=== PATIENT | female | born 1990 | race Two or more races ===

== ENCOUNTER 2019-11-27 12:38 | Emergency (ER) | payer OTHER ==
[2019-11-27 12:51] VITALS: BP 136/74; TEMP 98.5; BMI 35.5
--- NOTE | 2019-11-27 13:00 | PDOC ---
History of Present Illness - General Chief Complaint: Vaginal Bleeding Stated Complaint: 11 WKS PRGT VAG BLEED Time Seen by Provider: 11/27/19 12:53 History Source: Patient - History of Present Illness Timing/Duration: reports: intermittent Past History - Medical History Allergies/Adverse Reactions: Allergies Allergy/AdvReac Type Severity Reaction Status Date / Time aspirin Allergy Verified 11/27/19 12:48 Penicillins Allergy Verified 11/27/19 12:48 Home Medications: Ambulatory Orders Nitrofurantoin Monohyd/M-Cryst [Macrobid -] 100 mg PO BID #14 capsule 11/27/19 Asthma: Yes COPD: No - Reproductive History Is Patient Now?: No - Psycho-Social/Smoking History Smoking History: Never smoked Have you smoked in the past 12 months: No Information on smoking cessation initiated: No - Substance Abuse Hx (Audit-C & DAST Scrn) How often the patient has a drink containing alcohol: Never Score: In Men: 4 or > Positive; In Women: 3 or > Positive: 0 Screen Result (Pos requires Nsg. Audit-10AR): Negative In the last yr the pt used illegal drug/Rx for NonMed reason: No Score: Yes response is considered Positive: 0 Screen Result (Positive result requires Nsg. DAST-10): Negative Review of Systems - Review of Systems Constitutional: No: Chills, Fever ABD/GI: No: Nausea, Vomiting, Abdominal cramping : No: Dysuria *Physical Exam - Vital Signs Last Vital Signs Temp Pulse Resp BP Pulse Ox 98.5 F 101 H 20 136/74 98 11/27/19 12:48 11/27/19 12:48 11/27/19 12:48 11/27/19 12:48 11/27/19 12:48 - Physical Exam General Appearance: Yes: Appropriately Dressed. No: Apparent Distress HEENT: positive: Normal Voice Neck: positive: Supple Respiratory/Chest: negative: Respiratory Distress Gastrointestinal/Abdominal: positive: Soft. negative: Tender Musculoskeletal: negative: CVA Tenderness Integumentary: positive: Dry, Warm Neurologic: positive: Fully Oriented, Alert, Normal Mood/Affect Medical Decision Making - Medical Decision Making 11/27/19 12:56 29 yo F, , ~11 weeks by dates, no care/US as of yet, has 1st appt next week, here vaginal bleeding on and off x 2-3 weeks. Had clots in the beginning but not now. No abd pain, dysuria, n/v/f/c. Went to UC today and sent to the ER see exam 1st trimester bleed Stable w/ unremarkable exam -T&S -Beta -UA/Ucx -US 11/27/19 14:52 +UTI, ucx sent. US w/ ~10 w IUP with FHR. O+. Stable for dc w/ abx. To f/u with OB as d/w pt Discharge - Discharge Information Problems reviewed: Yes Clinical Impression/Diagnosis: Threatened , Bacteriuria Condition: Stable Disposition: HOME - Additional Discharge Information Prescriptions: Nitrofurantoin Monohyd/M-Cryst [Macrobid -] 100 mg PO BID #14 capsule - Follow up/Referral - Patient Discharge Instructions Patient Printed Discharge Instructions: DI for Threatened Additional Instructions: Your ultrasound shows a 10-week 4-day intrauterine with heart activity documented [place] type [place] O[place] [id number] Your urine showed a urine infection and antibiotics was sent to your pharmacy Please follow-up with your OB - Post Discharge Activity
[2019-11-27 13:39] LABS: EPI CELLS >36 /uL (0-25.1); HYALINE CASTS 5 /uL (0-3.1); PH,URINE 7.5 (5.0-8.0); URINE APPEARANCE CLOUDY; URINE BACTERIA 4689 /uL (0-1359); URINE BILIRUBIN NEGATIVE (NEGATIVE); URINE COLOR YELLOW; URINE GLUCOSE (UA) NEGATIVE (NEGATIVE); URINE KETONE TRACE (NEGATIVE); URINE LEUK ESTERASE 3+ (NEGATIVE); URINE NITRITE NEGATIVE (NEGATIVE); URINE PROTEIN NEGATIVE (NEGATIVE); URINE RBC 17 /uL (0-23.9); URINE UROBILINOGEN 0.2 mg/dL (0.2-1.0); URINE WBC 221 /uL (0-25.8)
[2019-11-27 15:19] VITALS: PULSE 84
--- OUTSIDE RECORDS SUMMARY | 2019-11-27 18:05 | XMS ---
:[address] [facility] Care Team Providers Name Role Phone KaitlinaleenaramonenocMaye Unavailable Unavailable Aszalos, Gayathri Unavailable Unavailable Aszalos, Gayathri Unavailable Unavailable Aszalos, Gayathri Unavailable Unavailable Aszalos, Gayathri Unavailable Unavailable Aszalos, Gayathri Unavailable Unavailable Aszalos, Gayathri Unavailable Unavailable Aszalos, Gayathri Unavailable Unavailable Aszalos, Gayathri Unavailable Unavailable Ekechukwu Unavailable [phone] Ekechukwu Unavailable [phone] Brannon Unavailable Unavailable Brannon Unavailable Unavailable Brannon Unavailable Unavailable Brannon Unavailable Unavailable Brannon Unavailable Unavailable Brannon Unavailable Unavailable Brannon Unavailable Unavailable Brannon Unavailable Unavailable Brannon Unavailable Unavailable Brannon Unavailable Unavailable Lavinia Heredia MD Unavailable Unavailable Lavinia Heredia MD Unavailable Unavailable Lavinia Heredia MD Unavailable Unavailable Lavinia Heredia MD Unavailable Unavailable Lavinia Heredia MD Unavailable Unavailable Lavinia Heredia MD Unavailable Unavailable Lavinia Heredia MD Unavailable Unavailable Lavinia Heredia MD Unavailable Unavailable Lavinia Heredia MD Unavailable Unavailable Lavinia Heredia MD Unavailable Unavailable Lavinia Heredia MD Unavailable Unavailable Lavinia Heredia MD Unavailable Unavailable Lavinia Heredia MD Unavailable Unavailable Lavinia Heredia MD Unavailable Unavailable Lavinia Heredia MD Unavailable Unavailable Re-disclosure Warning The records that you are about to access may contain information from federally- assisted alcohol or drug abuse programs. If such information is present, then the following federally mandated warning applies: This information has been disclosed to you from records protected by federal confidentiality rules (42 CFR part 2). The federal rules prohibit you from making any further disclosure of this information unless further disclosure is expressly permitted by the written consent of the person to whom it pertains or as otherwise permitted by 42 CFR part 2. A general authorization for the release of medical or other information is NOT sufficient for this purpose. The Federal rules restrict any use of the information to criminally investigate or prosecute any alcohol or drug abuse patient.The records that you are about to access may contain highly sensitive health information, the redisclosure of which is protected by Article 27-F of the [facility] Public Health law. If you continue you may haveaccess to information: Regarding HIV / AIDS; Provided by facilities licensed or operated by the [facility] Office of Mental Health; or Provided by the [facility] Office for People With Developmental Disabilities. If such information is present, then the following [facility] mandated warning applies: This information has been disclosed to you from confidential records which are protected by state law. State law prohibits you from making any further disclosure of this information without the specific written consent of the person to whom it pertains, or as otherwise permitted by law. Any unauthorized further disclosure in violation of state law may result in a fine or senior care sentence or both. A general authorization for the release of medical or other information is NOT sufficient authorization for further disclosure. Allergies and Adverse Reactions Type Description Substance Reaction Status Data Source(s ) Drug allergy Aspirin Aspirin Pruritic rash [facility] ( [facility] ) Drug allergy Aspirin Aspirin Anaphylaxis Active eCW3 ([facility]) Family History Family Member Family Member Family Member Date of Description Data Source(s) Name Gender Status Status Unknown Female Diagnosis 05/27/2018 NEXTGEN ( 12:00:00 AM Bryan Acevedo al EDT Chemult) Encounters Encounter Providers Location Date Indications Data Source(s ) Attender: Romy [facility] 11/06/2018 PARISH Heredia MD Chemult 12:54:00 Bryan PM EDT - Medical 11/06/2018 Center) 12:54:00 PM EDT Attender: [facility] 06/23/2018 [facility] 03[facility] Bryanenoc Hollins PM EDT - Medical 06/23/2018 Center) 03:08:00 PM EDT Outpatient Attender: Maye Méndez 06/18/2018 [facility] Kit morocho AszalosAdmitter 04:32:00 Medical C enter : Maye PM EDT AszalosReferrer : Maye Hector OutpatientOFFICE/OUT Attender: [facility] 06/18/2018 N EXTGEN ([facility] PATIENT VISIT, [facility] 04:32:00 Andriy stubbs Ekechukwu PM EDT - Medical 06/18/2018 Center) 04:32:00 PM EDT Outpatient 06/18/2018 [facility] 04:08:00 Medical Center PM EDT Outpatient 06/18/2018 [facility] 12:09:00 [facility] Center PM EDT Outpatient 06/18/2018 [facility] 12:00:00 [facility] Center AM EDT Outpatient [facility] 05/28/2018 eCW3 ([facility] 12:00:00 [facility] A28 AM EDT - Care) 05/28/2018 12:00:00 AM EDT Outpatient 05/27/2018 [facility] 11:25:00 [facility] Center AM EDT Outpatient Attender: Ashley Méndez 05/27/2018 [facility] Kit morocho VelezAdmitter: 09:37:00 Medical Ce nter Ashley AM EDT VelezReferrer: Ashley Brannon OutpatientWell Attender: [facility] 05/27/2018 NEXTGEN ([facility] Visit, [facility] 09:37:00 Bryan Nacho,18-39years Ekechukwu AM EDT - Medical 05/27/2018 Center) 09:37:00 AM EDT 05/27/2018 [facility] 09:35:00 Medical Center AM EDT Outpatient 05/27/2018 [facility] 12:00:00 [facility] Center AM EDT Outpatient 05/22/2018 [facility] 11:24:00 [facility] Center AM EDT Outpatient 05/22/2018 [facility] 12:00:00 [facility] Center AM EDT 05/20/2018 [facility] 11:24:00 Medical Center AM EDT Medications Medication Brand Start Product Dose Route [facility] Indications Reaction Description Data Name Date Form Instructions Instructions Source(s) Simethicone simeth 06/18/ active Take it 3 NEXTGEN 180 MG Oral icone 2019 times/day (S aint Capsule 180 mg 12:00: [facility] simethicone capsul 00 AM Medic al 180 mg e T Chemult) capsule Folic Acid folic 05/27/ active Take 1 NE XTGEN 0.8 MG Oral acid 2019 tablet once ( Capsule 0.8 mg 12:00: day Bryan folic acid capsul 00 AM Medica l 0.8 mg e [facility]) capsule No Known complet eCW3 Medications ed ([facility]) Insurance Providers Payer name Policy type Policy ID Covered Covered constitution party's Policy P lluvia / Coverage constitution party ID relationship to [place] Inf ormation type palomino AFFINITY [id number] SP [id number] AFFINITY O [id number] HEALTH PLAN AFFINITY O [id number] HEALTH PLAN Problems, Conditions, and Diagnoses Code Display Name Description Problem Type Effective Data Dates Source(s) [id number] Bilateral cyst of Bilateral cyst Problem NEXTGEN breasts of breasts ([facility]) Z68.37 Body mass index BODY MASS Diagnosis 06/18/2018 [facility] (BMI) 37.0-37.9, INDEX (BMI) 04:32:00 PM [facility] adult 37.0-37.9, [facility] ADULT Center Z71.89 Other specified OTHER Diagnosis 06/18/2018 counseling SPECIFIED 04:32:00 PM [facility] COUNSELING [facility] Z71.9 Counseling, COUNSELING, Diagnosis 06/18/2018 unspecified UNSPECIFIED 04:32:[address] [facility] R19.7 Diarrhea, DIARRHEA, Diagnosis 06/18/2018 unspecified UNSPECIFIED 04:32:[address] [facility] Z11.3 Encounter for ENCNTR SCREEN Diagnosis 05/27/2018 screening for FOR INFECTIONS 09:37:00 AM Andriy stubbs infections with a W SEXL MODE OF EDT Med ical predominantly TRANSMISS Center sexual mode of transmission N60.01 Solitary cyst of SOLITARY CYST Diagnosis 05/27/2018 right breast OF RIGHT 09:37:00 AM [facility] BREAST [facility] N94.11 Superficial SUPERFICIAL Diagnosis 05/27/2018 (introital) (INTROITAL) 09:37:00 AM [facility] dyspareunia DYSPAREUNIA [facility] Z00.01 Encounter for ENCOUNTER FOR Diagnosis 05/27/2018 general adult GENERAL ADULT 09:37:00 AM [facility] medical MEDICAL EXAM W EDT Medical examination with ABNORMAL Center abnormal findings FINDINGS Surgeries/Procedures Procedure Description Date Indications Data Source(s) OFFICE/OUTPATIENT 06/18/2018 NEXTGEN (Enoc Adams VISIT, EST 12:00:00 AM EDT - Medical Ce nt) 06/18/2018 12:00:00 AM EDT Well Visit, 05/27/2018 NEXTGEN ([facility] Bryan Griffith,18-39years 12:00:00 AM EDT - Medica l Center) 05/27/2018 12:00:00 AM EDT Results ID Date Data Source HematologySpeci.[id number] 06/18/2018 06:30:00 PM EDT [facility] 0-0400 Name Value Range Interpretation Description Data Sup porting Code Source(s) Document(s ) C reactive < 3.0 Above high normal <content [facility] protein styleCode="Bold" Bryan [Mass/volume] in >C-Reactive Medical Serum or Plasma Protein Center </content>10.27 MG/L H<content styleCode="Itali cs"> (< 3.0 MG/L)</content> Erythrocyte < 20 Above high normal <content [facility] sedimentation styleCode="Bold" Bryan rate by >Erythrocyte Medical [facility] method Rate (ESR) </content>40 MM/hr H<content styleCode="Itali cs"> (< 20 MM/hr)</content> ID Date Data Source HematologySpeci 06/18/2018 06:30:00 PM EDT [facility] Name Value Range Interpretation Description Data Sup porting Code Source(s) Document(s ) C reactive < 3.0 Above high normal <content [facility] protein styleCode="Bold" Bryan [Mass/volume] in >C-Reactive Medical Serum or Plasma Protein Center </content>10.27 MG/L H<content styleCode="Itali cs"> (< 3.0 MG/L)</content> Erythrocyte < 20 Above high normal <content [facility] sedimentation styleCode="Bold" Bryan rate by >Erythrocyte Medical [facility] method Rate (ESR) </content>40 MM/hr H<content styleCode="Itali cs"> (< 20 MM/hr)</content> ID Date Data Source LIPID.[id number] 05/27/2018 12:31:00 PM EDT [facility] Name Value Range Interpretation Description Data Sup porting Code Source(s) Document(s ) Triglyceride < 150 <content [facility] [Mass/volume] in styleCode="Felicia Bryan Serum or Plasma d">Triglycerid [facility] </content>102 MG/DL<content styleCode="Emani lics"> (< 150 MG/DL)</conten t> Cholesterol -<200 <content [facility] [Mass/volume] in styleCode="Felicia Bryan Serum or Plasma d">Cholesterol Medical </content>148 Center MG/DL<content styleCode="Emani lics"> (-<200 MG/DL)</conten t> UNK < 100 <content [facility] styleCode="Felicia Bryan d">LDL-Cholest [facility] </content>78 MG/DL<content styleCode="Emani lics"> (< 100 MG/DL)</conten t> UNK > 60 Below low normal <content [facility] styleCode="Felicia Bryan d">HDL- [facility] </content>50 MG/DL L<content styleCode="Emani lics"> (> 60 MG/DL)</conten t> ID Date Data Source [id number] 05/27/2018 12:31:00 PM EDT [facility] Name Value Range Interpretation Description Data Sup porting Code Source(s) Document(s ) Thyrotropin 0.465-4. <content [facility] [Units/volume] 68 styleCode="Felicia Bryan in Serum or d">Thyroid Medical Plasma by Stimulating Center Detection Hormone limit <= 0.05 </content>1.00 mIU/L MIU/L<content styleCode="Emani lics"> (0.465-4.68 MIU/L)</conten t> ID Date Data Source HematologyRou.[id number] 05/27/2018 12:31:00 PM EDT [facility] 0400 Name Value Range Interpretation Description Data Sup porting Code Source(s) Document(s ) Leukocytes 4.4-11.0 <content [facility] [#/volume] in styleCode="Bold Bryan Blood by ">White Blood Medical Automated count Cell Count Center </content>8.15 KCUMM<content styleCode="Ital ics"> (4.4-11.0 KCUMM)</content > Hemoglobin 12.3-16. <content [facility] [Mass/volume] in 0 styleCode="Bold Bryan Blood ">Hemoglobin Medical </content>13.4 Center G/DL<content styleCode="Ital ics"> (12.3-16.0 G/DL)</content> Erythrocytes 4.0-5.1 <content [facility] [#/volume] in styleCode="Bold Bryan Blood by ">Red Blood Medical Automated count Cell Count Center </content>4.85 MCUMM<content styleCode="Ital ics"> (4.0-5.1 MCUMM)</content > Erythrocyte mean 80.0-100 <content [facility] corpuscular .0 styleCode="Bold Bryan volume [Entitic ">Mean Medical volume] by Corpuscular Center Automated count Volume </content>86.6 FL<content styleCode="Ital ics"> (80.0-100.0 FL)</content> Hematocrit 36.0-46. <content [facility] [Volume 0 styleCode="Bold Bryan Fraction] of ">Hematocrit Medical Blood by </content>42.0 Center Automated count %<content styleCode="Ital ics"> (36.0-46.0 %)</content> Erythrocyte mean 32.0-37. Below low normal <content [facility] corpuscular 0 styleCode="Bold Bryan hemoglobin ">Mean Corpus. Medical concentration Hgb Center [Mass/volume] by Concentration Automated count (MCHC) </content>31.9 G/DL L<content styleCode="Ital ics"> (32.0-37.0 G/DL)</content> Erythrocyte mean 26.0-34. <content [facility] corpuscular 0 styleCode="Bold Bryan hemoglobin ">Mean Medical [Entitic mass] Corposcular Center by Automated Hemoglobin count </content>27.6 PG<content styleCode="Ital ics"> (26.0-34.0 PG)</content> Erythrocyte 11.5-14. <content [facility] distribution 5 styleCode="Bold Bryan width [Ratio] by ">Red Cell Medical Automated count Distribution Center Width </content>12.6 %<content styleCode="Ital ics"> (11.5-14.5 %)</content> Platelet mean 8.0-11.0 <content [facility] volume [Entitic styleCode="Bold Bryan volume] in Blood ">Mean Platelet Medical by Automated Volume Center count </content>9.5 FL<content styleCode="Ital ics"> (8.0-11.0 FL)</content> Platelets 130-400 <content [facility] [#/volume] in styleCode="Bold Bryan Blood by ">Platelet Medical Automated count Count Center </content>379 KCUMM<content styleCode="Ital ics"> (130-400 KCUMM)</content > Neutrophils 36-66 <content [facility] [#/volume] in styleCode="Bold Bryan Blood by ">Neutrophil Medical Automated count </content>65.3 Center %<content styleCode="Ital ics"> (36-66 %)</content> UNK 1.6-7.3 <content [facility] styleCode="Bold Bryan ">Neutrophil Medical Count Center </content>5.33 KCUMM<content styleCode="Ital ics"> (1.6-7.3 KCUMM)</content > UNK 1.0-4.8 <content [facility] styleCode="Bold Bryan ">Lymphocyte Medical Count Center </content>2.17 KCUMM<content styleCode="Ital ics"> (1.0-4.8 KCUMM)</content > Lymphocytes 24.0-44. <content [facility] [#/volume] in 0 styleCode="Bold Bryan Blood by ">Lymphocyte Medical Automated count </content>26.6 Center %<content styleCode="Ital ics"> (24.0-44.0 %)</content> Monocytes 3.0-10.0 <content [facility] [#/volume] in styleCode="Bold Bryan Blood by ">Monocyte Medical Automated count </content>6.3 Center %<content styleCode="Ital ics"> (3.0-10.0 %)</content> UNK 0.2-0.9 <content [facility] styleCode="Bold Bryan ">Monocyte Medical Count Center </content>0.51 KCUMM<content styleCode="Ital ics"> (0.2-0.9 KCUMM)</content > Eosinophils 0-5.0 <content [facility] [#/volume] in styleCode="Bold Bryan Blood by ">Eosinophil Medical Automated count </content>1.0 Center %<content styleCode="Ital ics"> (0-5.0 %)</content> Basophils 0.0-1.0 <content [facility] [#/volume] in styleCode="Bold Bryan Blood by ">Basophil Medical Automated count </content>0.4 Center %<content styleCode="Ital ics"> (0.0-1.0 %)</content> UNK 0.0-0.6 <content [facility] styleCode="Bold Bryan ">Eosinophil Medical Count Center </content>0.08 KCUMM<content styleCode="Ital ics"> (0.0-0.6 KCUMM)</content > UNK 0 <content [facility] styleCode="Bold Bryan ">Nucleated Red Medical Blood Cell Center </content>0.0 /100<content styleCode="Ital ics"> (0 /100)</content> UNK 0.0-0.3 <content [facility] styleCode="Bold Bryan ">Basophil Medical Count Center </content>0.03 KCUMM<content styleCode="Ital ics"> (0.0-0.3 KCUMM)</content > UNK 0.0 <content [facility] styleCode="Bold Bryan ">Nucleated Red Medical Blood Cell Center Count </content>0.00 KCUMM<content styleCode="Ital ics"> (0.0 KCUMM)</content > UNK 0-0.1 <content [facility] styleCode="Bold Bryan ">Immature Medical Granulocyte Center Count </content>0.03 KCUMM<content styleCode="Ital ics"> (0-0.1 KCUMM)</content > UNK < 1 <content [facility] styleCode="Bold Bryan ">Immature Medical Granulocyte Center Ratio </content>0.4 %<content styleCode="Ital ics"> (< 1 %)</content> ID Date Data Source GFR(Creatinine).[id number] 05/27/2018 12:31:00 PM EDT [facility] 0-0400 Name Value Range Interpretation Code Description Data Nallely rce(s) Supporting Document(s ) UNK > 60 <content [facility] styleCode="Bold"> Medical Cent er EGFR </content>127 GFR<content styleCode="Italic s"> (> 60 GFR)</content> ID Date Data Source CHMROUTINECCDA.[id number] 05/27/2018 12:31:00 PM EDT [facility] -0400 Name Value Range Interpretation Code Description Data Nallely rce(s) Supporting Document(s ) UNK 4.2-5.8 <content [facility] styleCode="Bold" Medical Cente r >Hemoglobin A1C </content>5.8 %<content styleCode="Itali cs"> (4.2-5.8 %)</content> ID Date Data Source [facility].[id number] 05/27/2018 12:31:00 PM EDT [facility] Name Value Range Interpretation Description Data Sup porting Code Source(s) Document(s ) Sodium 137-145 <content [facility] [Moles/volume] styleCode="Felicia Bryan in Serum or d">Sodium Medical Plasma </content>140 Center MEQ/L<content styleCode="Emani lics"> (137-145 MEQ/L)</conten t> Potassium 3.5-5.3 <content [facility] [Moles/volume] styleCode="Felicia Bryan in Serum or d">Potassium Medical Plasma </content>4.7 Center MEQ/L<content styleCode="Emani lics"> (3.5-5.3 MEQ/L)</conten t> Chloride 98-107 <content [facility] [Moles/volume] styleCode="Felicia Ashrafs in Serum or d">Chloride Medical Plasma </content>102 Center MEQ/L<content styleCode="Emani lics"> (98-107 MEQ/L)</conten t> Carbon 22-30 <content [facility] dioxide, total styleCode="Felicia Ashrafs [Moles/volume] d">Carbon Medical in Serum or Dioxide Center Plasma </content>29 MEQ/L<content styleCode="Emani lics"> (22-30 MEQ/L)</conten t> UNK 7-17 <content [facility] styleCode="Felicia Ashrafs d">BUN Medical </content>11 Center MG/DL<content styleCode="Emani lics"> (7-17 MG/DL)</conten t> Glucose 74-106 <content [facility] [Mass/volume] styleCode="Felicia Ashrafs in Serum or d">Glucose Medical Plasma </content>103 Center MG/DL<content styleCode="Emani lics"> (74-106 MG/DL)</conten t> Creatinine 0.5-1.3 <content [facility] [Mass/volume] styleCode="Felicia Ashrafs in Serum or d">Creatinine Medical Plasma </content>0.6 Center MG/DL<content styleCode="Emani lics"> (0.5-1.3 MG/DL)</conten t> Calcium 8.4-10.2 <content [facility] [Mass/volume] styleCode="Felicia Ashrafs in Serum or d">Calcium Medical Plasma </content>9.5 Center MG/DL<content styleCode="Emani lics"> (8.4-10.2 MG/DL)</conten t> UNK > 60 <content [facility] styleCode="Felicia Ashrafs d">EGFR Medical </content>127 Center GFR<content styleCode="Emani lics"> (> 60 GFR)</content> ID Date Data Source LIPID 05/27/2018 12:31:00 PM EDT [facility] Name Value Range Interpretation Description Data Sup porting Code Source(s) Document(s ) Triglyceride < 150 <content [facility] [Mass/volume] in styleCode="Felicia Ashrafs Serum or Plasma d">Triglycerid Medical es Center </content>102 MG/DL<content styleCode="Emani lics"> (< 150 MG/DL)</conten t> UNK < 100 <content [facility] styleCode="Felicia Bryan d">LDL-Cholest [facility] kuldeep Center </content>78 MG/DL<content styleCode="Emani lics"> (< 100 MG/DL)</conten t> UNK > 60 Below low normal <content [facility] styleCode="Felicia Bryan d">HDL- Medical Cholesterol Center </content>50 MG/DL L<content styleCode="Emani lics"> (> 60 MG/DL)</conten t> Cholesterol -<200 <content [facility] [Mass/volume] in styleCode="Felicia Bryan Serum or Plasma d">Cholesterol Medical </content>148 Center MG/DL<content styleCode="Emani lics"> (-<200 MG/DL)</conten t> ID Date Data Source Hormones 05/27/2018 12:31:00 PM EDT [facility] Name Value Range Interpretation Description Data Sup porting Code Source(s) Document(s ) Thyrotropin 0.465-4. <content [facility] [Units/volume] 68 styleCode="Felicia Ashrafs in Serum or d">Thyroid Medical Plasma by Stimulating Center Detection Hormone limit <= 0.05 </content>1.00 mIU/L MIU/L<content styleCode="Emani lics"> (0.465-4.68 MIU/L)</conten t> ID Date Data Source HematologyRou 05/27/2018 12:31:00 PM EDT [facility] Name Value Range Interpretation Description Data Sup porting Code Source(s) Document(s ) Leukocytes 4.4-11.0 <content [facility] [#/volume] in styleCode="[facility] Blood by ">White Blood Medical Automated count Cell Count Center </content>8.15 KCUMM<content styleCode="Ital ics"> (4.4-11.0 KCUMM)</content > Erythrocytes 4.0-5.1 <content [facility] [#/volume] in styleCode="Bold Bryan Blood by ">Red Blood Medical Automated count Cell Count Center </content>4.85 MCUMM<content styleCode="Ital ics"> (4.0-5.1 MCUMM)</content > Hemoglobin 12.3-16. <content [facility] [Mass/volume] in 0 styleCode="Bold Bryan Blood ">Hemoglobin Medical </content>13.4 Center G/DL<content styleCode="Ital ics"> (12.3-16.0 G/DL)</content> Hematocrit 36.0-46. <content [facility] [Volume 0 styleCode="Bold Bryan Fraction] of ">Hematocrit Medical Blood by </content>42.0 Center Automated count %<content styleCode="Ital ics"> (36.0-46.0 %)</content> Erythrocyte mean 32.0-37. Below low normal <content [facility] corpuscular 0 styleCode="Bold Bryan hemoglobin ">Mean Corpus. Medical concentration Hgb Center [Mass/volume] by Concentration Automated count (MCHC) </content>31.9 G/DL L<content styleCode="Ital ics"> (32.0-37.0 G/DL)</content> Erythrocyte mean 80.0-100 <content [facility] corpuscular .0 styleCode="Bold Bryan volume [Entitic ">Mean Medical volume] by Corpuscular Center Automated count Volume </content>86.6 FL<content styleCode="Ital ics"> (80.0-100.0 FL)</content> Erythrocyte 11.5-14. <content [facility] distribution 5 styleCode="Bold Bryan width [Ratio] by ">Red Cell Medical Automated count Distribution Center Width </content>12.6 %<content styleCode="Ital ics"> (11.5-14.5 %)</content> Erythrocyte mean 26.0-34. <content [facility] corpuscular 0 styleCode="Bold Bryan hemoglobin ">Mean Medical [Entitic mass] Corposcular Center by Automated Hemoglobin count </content>27.6 PG<content styleCode="Ital ics"> (26.0-34.0 PG)</content> UNK 1.6-7.3 <content [facility] styleCode="Bold Bryan ">Neutrophil Medical Count Center </content>5.33 KCUMM<content styleCode="Ital ics"> (1.6-7.3 KCUMM)</content > Platelet mean 8.0-11.0 <content [facility] volume [Entitic styleCode="Bold Bryan volume] in Blood ">Mean Platelet Medical by Automated Volume Center count </content>9.5 FL<content styleCode="Ital ics"> (8.0-11.0 FL)</content> Platelets 130-400 <content Saint [#/volume] in styleCode="Bold Bryan Blood by ">Platelet Medical Automated count Count Center </content>379 KCUMM<content styleCode="Ital ics"> (130-400 KCUMM)</content > Neutrophils 36-66 <content [facility] [#/volume] in styleCode="Bold Bryan Blood by ">Neutrophil Medical Automated count </content>65.3 Center %<content styleCode="Ital ics"> (36-66 %)</content> Lymphocytes 24.0-44. <content Saint [#/volume] in 0 styleCode="Bold Bryan Blood by ">Lymphocyte Medical Automated count </content>26.6 Center %<content styleCode="Ital ics"> (24.0-44.0 %)</content> Monocytes 3.0-10.0 <content [facility] [#/volume] in styleCode="Bold Bryan Blood by ">Monocyte Medical Automated count </content>6.3 Center %<content styleCode="Ital ics"> (3.0-10.0 %)</content> UNK 1.0-4.8 <content [facility] styleCode="Bold Bryan ">Lymphocyte Medical Count Center </content>2.17 KCUMM<content styleCode="Ital ics"> (1.0-4.8 KCUMM)</content > Eosinophils 0-5.0 <content [facility] [#/volume] in styleCode="Bold Bryan Blood by ">Eosinophil Medical Automated count </content>1.0 Center %<content styleCode="Ital ics"> (0-5.0 %)</content> UNK 0.2-0.9 <content [facility] styleCode="Bold Bryan ">Monocyte Medical Count Center </content>0.51 KCUMM<content styleCode="Ital ics"> (0.2-0.9 KCUMM)</content > UNK 0.0-0.6 <content [facility] styleCode="Bold Bryan ">Eosinophil Medical Count Center </content>0.08 KCUMM<content styleCode="Ital ics"> (0.0-0.6 KCUMM)</content > UNK 0.0-0.3 <content [facility] styleCode="Bold Bryan ">Basophil Medical Count Center </content>0.03 KCUMM<content styleCode="Ital ics"> (0.0-0.3 KCUMM)</content > UNK 0.0 <content [facility] styleCode="Bold Bryan ">Nucleated Red Medical Blood Cell Center Count </content>0.00 KCUMM<content styleCode="Ital ics"> (0.0 KCUMM)</content > UNK 0 <content [facility] styleCode="Bold Bryan ">Nucleated Red Medical Blood Cell Center </content>0.0 /100<content styleCode="Ital ics"> (0 /100)</content> Basophils 0.0-1.0 <content [facility] [#/volume] in styleCode="Bold Bryan Blood by ">Basophil Medical Automated count </content>0.4 Center %<content styleCode="Ital ics"> (0.0-1.0 %)</content> UNK 0-0.1 <content [facility] styleCode="Bold Bryan ">Immature Medical Granulocyte Center Count </content>0.03 KCUMM<content styleCode="Ital ics"> (0-0.1 KCUMM)</content > UNK < 1 <content [facility] styleCode="Bold Bryan ">Immature Medical Granulocyte Center Ratio </content>0.4 %<content styleCode="Ital ics"> (< 1 %)</content> ID Date Data Source GFR(Creatinine) 05/27/2018 12:31:00 PM EDT [facility] Name Value Range Interpretation Code Description Data Nallely rce(s) Supporting Document(s ) UNK > 60 <content [facility] styleCode="Bold"> Medical Cent er EGFR </content>127 GFR<content styleCode="Italic s"> (> 60 GFR)</content> ID Date Data Source [id number] 05/27/2018 12:31:00 PM EDT [facility] Name Value Range Interpretation Code Description Data Nallely rce(s) Supporting Document(s ) UNK 4.2-5.8 <content [facility] styleCode="Bold" Medical Cente r >Hemoglobin A1C </content>5.8 %<content styleCode="Itali cs"> (4.2-5.8 %)</content> ID Date Data Source BMP 05/27/2018 12:31:00 PM EDT [facility] Name Value Range Interpretation Description Data Sup porting Code Source(s) Document(s ) Carbon 22-30 <content [facility] dioxide, total styleCode="Felicia Bryan [Moles/volume] d">Carbon Medical in Serum or Dioxide Center Plasma </content>29 MEQ/L<content styleCode="Emani lics"> (22-30 MEQ/L)</conten t> Chloride 98-107 <content [facility] [Moles/volume] styleCode="Felicia Bryan in Serum or d">Chloride Medical Plasma </content>102 Center MEQ/L<content styleCode="Emani lics"> (98-107 MEQ/L)</conten t> Potassium 3.5-5.3 <content [facility] [Moles/volume] styleCode="Felicia Bryan in Serum or d">Potassium Medical Plasma </content>4.7 Center MEQ/L<content styleCode="Emani lics"> (3.5-5.3 MEQ/L)</conten t> Sodium 137-145 <content [facility] [Moles/volume] styleCode="Felicia Bryan in Serum or d">Sodium Medical Plasma </content>140 Center MEQ/L<content styleCode="Emani lics"> (137-145 MEQ/L)</conten t> UNK 7-17 <content [facility] styleCode="Felicia Bryan d">BUN Medical </content>11 Center MG/DL<content styleCode="Emani lics"> (7-17 MG/DL)</conten t> UNK > 60 <content [facility] styleCode="Felicia Bryan d">EGFR Medical </content>127 Center GFR<content styleCode="Emani lics"> (> 60 GFR)</content> Creatinine 0.5-1.3 <content [facility] [Mass/volume] styleCode="Felicia Bryan in Serum or d">Creatinine Medical Plasma </content>0.6 Center MG/DL<content styleCode="Emani lics"> (0.5-1.3 MG/DL)</conten t> Glucose 74-106 <content [facility] [Mass/volume] styleCode="Felicia Bryan in Serum or d">Glucose Medical Plasma </content>103 Center MG/DL<content styleCode="Emani lics"> (74-106 MG/DL)</conten t> Calcium 8.4-10.2 <content [facility] [Mass/volume] styleCode="Felicia Bryan in Serum or d">Calcium Medical Plasma </content>9.5 Center MG/DL<content styleCode="Emani lics"> (8.4-10.2 MG/DL)</conten t> Procedure Social History Code Duration Value Status Description Data Source(s ) Caffeine Use 06/23/2018 completed coffee, 1 cup NEXTGEN ( [facility] Details 12:00:00 AM [facility]) Smoking 06/23/2018 Unknown if completed Unknown if ever NEXTGEN ( [facility] 12:00:00 AM ever smoked smoked [facility]) Alcohol Use 06/18/2018 completed Liquor 1 drink NEXTGEN ( [facility] Details 12:00:00 AM occasionally [facility]) 06/18/2018 Current completed Current non-smoker NEXTGE N ([facility] 12:00:00 AM non-smoker [facility]) Smoking 05/28/2018 Never Smoker completed Never Smoker eCW3 ([facility] 12:[facility]:00 AM [facility]) Smoking Unknown if completed Unknown if ever [facility] ever smoked smoked Medical Cent[facility] r Never Smoker completed Never Smoker eCW3 ([facility]) Vital Signs ID Date Data Source UNK Name Value Range Interpretation Code Description Data Source(s) Oxygen saturation 100 % 100 % NEXTGEN ([facility] in Arterial blood [facility] by Pulse oximetry Center) Body mass index 37.30 kg/m2 Overweight 37.30 kg/m2 NEXTGEN ([facility] (BMI) [Ratio] [facility]) Respiratory rate 20 /min 20 /min NEXTGEN ([facility]) Body temperature 36.61 Ana 36.61 Ana NEXTGEN ([facility]) Heart rate 81 /min 81 /min NEXTGEN ([facility]) Diastolic blood 71 mm[Hg] 71 mm[Hg] NEXTGEN ( [facility]) Systolic blood 126 mm[Hg] 126 mm[Hg] NEXTGEN ([facility]) Body weight 93.259 kg 93.259 kg NEXTGEN ([facility]) Body height 158.12 cm 158.12 cm NEXTGEN ([facility]) Diastolic blood 78 mm[Hg] 78 mm[Hg] eCW3 ([facility]) Systolic blood 116 mm[Hg] 116 mm[Hg] eCW3 ([facility]) Body temperature 98.3 [degF] 98.3 [degF] eCW3 ( [facility]) Heart rate 20 /min 20 /min eCW3 ([facility]) Body mass index 35.36 kg/m2 35.36 kg/m2 eCW3 ([facility] (BMI) [Ratio] [facility]) Body weight 206 [lb_av] 206 [lb_av] eCW3 ([facility]) Body height 64 [in_i] 64 [in_i] eCW3 ([facility]) Oxygen saturation 98 % 98 % NEXTGEN ([facility] in Arterial blood [facility] by Pulse oximetry Center) Body mass index 37.74 kg/m2 Overweight 37.74 kg/m2 NEXTGEN ([facility] (BMI) [Ratio] [facility]) Respiratory rate 18 /min 18 /min [facility] ([facility]) Body temperature 37.17 Ana 37.17 Ana [facility] ([facility]) Heart rate 73 /min 73 /min [facility] ([facility]) Diastolic blood 73 mm[Hg] 73 mm[Hg] [facility] ( [facility]) Systolic blood 115 mm[Hg] 115 mm[Hg] [facility] ([facility]) Body weight 94.347 kg 94.347 kg [facility] ([facility]) Body height 158.12 cm 158.12 cm [facility] ([facility]) Patient Treatment Plan of Care Planned Activity Planned Date Details Description Data Source (s) Simethicone 180 MG Oral 06/18/2018 12:00:00 [facility] ([facility]) Folic Acid 0.8 MG Oral 05/27/2018 12:00:00 [facility] ([facility])
== END 2019-11-27 15:05 | disposition home or self-care (01) ==
LOC: JER 12:38
DX: O20.0 Threatened abortion (principal)
CPT/HCPCS: 36415; 76801-TC; 81003; 84702; 86850; 86900; 86901; 87086; 99284-25

== ENCOUNTER 2020-09-28 18:50 | Emergency (ER) | payer OTHER ==
[2020-09-28 18:55] VITALS: BMI 38.2
[2020-09-28 20:36] VITALS: BP 122/69; PULSE 87; TEMP 98.1
== END 2020-09-28 20:40 | disposition home or self-care (01) ==
LOC: JER 18:50
DX: O26.892 Other specified pregnancy related conditions, second trimester (principal); R10.9 Unspecified abdominal pain; Z3A.22 22 weeks gestation of pregnancy
CPT/HCPCS: 99281-25

== ENCOUNTER 2021-02-03 08:18 | Inpatient (IN) | payer OTHER ==
[2021-02-03] MEDS ORDERED: BUTORPHANOL TARTRATE 1 MG/ML VIAL IVPB ONE (09:02)
[2021-02-03] MEDS ORDERED: PROMETHAZINE HCL 25 MG/1 ML VIAL IVPUSH ONE (09:02)
[2021-02-03] MEDS ORDERED: SODIUM PHOSPHATE/NA BIPHOS 133 ML ENEMA PR ONE (09:05)
[2021-02-03] MEDS ORDERED: DEXTROSE 5%-LACTATED RINGERS 1,000 ML IV SCH (09:15)
[2021-02-03 09:17] VITALS: BMI 39.4
[2021-02-03] MEDS ORDERED: DINOPROSTONE 10 MG VAGINAL SUPPOSITORY VG ONE (09:30)
[2021-02-03 09:57] LABS: BASO % 0.2 % (0-2.0); EOS % 0.7 % (0-4.5); HEMATOCRIT 35.1 % (32.4-45.2); HEMOGLOBIN 11.9 GM/dL (10.7-15.3); LYMPH % 18.4 % (8-40); MCH 28.5 pg (25.7-33.7); MCHC 33.8 g/dl (32.0-36.0); MEAN CELL VOLUME 84.2 fl (80-96); MONO % 6.9 % (3.8-10.2); NEUT % 73.8 % (42.8-82.8); PLATELET COUNT 259 10^3/uL (134-434); RBC 4.17 M/mm3 (3.60-5.2); RDW 15.6 % (11.6-15.6); WHITE BLOOD COUNT 5.5 K/mm3 (4.0-10.0)
[2021-02-03 10:05] LABS: INR 0.97 (0.83-1.09); PROTHROMBIN TIME (PATIENT) 11.4 SEC (9.7-13.0)
[2021-02-03 10:07] LABS: ACTIVATED PTT 28.3 SECONDS (25.2-36.5)
[2021-02-03 10:22] LABS: CALCIUM 8.8 mg/dL (8.5-10.1)
[2021-02-03 10:24] LABS: BLOOD UREA NITROGEN 8.3 mg/dL (7-18)
[2021-02-03 10:27] LABS: CREATININE 0.6 mg/dL (0.55-1.3)
[2021-02-03] MEDS ORDERED: CLINDAMYCIN 900 MG PREMIX IVPB 900 MG/50 ML BAG IVPB ONE (17:42)
[2021-02-03] MEDS: CLINDAMYCIN 900 MG PREMIX IVPB 900 MG/50 ML BAG IVPB SCH (17:47)
[2021-02-03] MEDS ORDERED: PROMETHAZINE HCL 25 MG/1 ML VIAL ONE (23:10)
[2021-02-03] MEDS ORDERED: BUTORPHANOL TARTRATE 2 MG/ML VIAL ONE (23:10)
[2021-02-03] MEDS ORDERED: OXYTOCIN 30 UNITS in 0.9% NS 30 UNIT/500 ML INFUS.BAG IVPB SCH (23:30)
[2021-02-04] MEDS ORDERED: FENTANYL/BUPIVACAINE/NS/PF - PCEA - 50 ML DISP.SYRIN EP ONE (01:10)
[2021-02-04] MEDS ORDERED: PCA PUMP NR ONE (01:10)
[2021-02-04] MEDS ORDERED: NALOXONE HCL 0.4 MG/ML VIAL IVPUSH PRN (01:22)
[2021-02-04] MEDS ORDERED: BUPIVACAINE HCL/PF 0.25% (2.5MG/ML) 10 ML VIAL ONE (01:23)
[2021-02-04] MEDS ORDERED: FENTANYL/BUPIVACAINE/NS/PF - PCEA - 50 ML DISP.SYRIN EP SCH (01:30)
[2021-02-04] MEDS ORDERED: CLINDAMYCIN 900 MG PREMIX IVPB 900 MG/50 ML BAG IVPB ONE (01:57)
[2021-02-04] MEDS: CLINDAMYCIN 900 MG PREMIX IVPB 900 MG/50 ML BAG IVPB SCH (02:00)
[2021-02-04] MEDS ORDERED: OXYTOCIN 20 UNITS in 0.9% NS 20 UNIT/1,000 ML INFUS.BAG IV ONE (05:13)
[2021-02-04] MEDS ORDERED: BISACODYL 10 MG SUPP.RECT RC PRN (07:11)
[2021-02-04] MEDS ORDERED: BENZOCAINE 28 GM HEMORRHOIDAL OINTMENT TP PRN (07:11)
[2021-02-04] MEDS ORDERED: WITCH HAZEL 50% (TUCKS) 40 PAD/JAR PAD TP PRN (07:11)
[2021-02-04] MEDS ORDERED: IBUPROFEN 600 MG TABLET (FP) PO PRN (07:11)
[2021-02-04] MEDS ORDERED: METHYLERGONOVINE MALEATE 0.2 MG/1 ML AMP IM PRN (07:11)
[2021-02-04] MEDS ORDERED: oxyCODONE HCL 5 MG TABLET PO PRN (07:11)
[2021-02-04] MEDS ORDERED: BENZOCAINE 20% 57 GM BOTTLE TP PRN (07:11)
[2021-02-04] MEDS ORDERED: OXYTOCIN 20 UNITS in 0.9% NS 20 UNIT/1,000 ML INFUS.BAG IV SCH (07:15)
[2021-02-04 07:31] LABS: CORD BASE EXCESS -3.6 mmol/L (0-2); CORD HCO3 23.4 mmHg (20-29); CORD PCO2 49.4 mmHg (30-78); CORD pH 7.293 (7.14-7.44)
[2021-02-04 07:32] LABS: CORD HCO3 24.4 mmHg (20-29); CORD PCO2 65.4 mmHg (30-78); CORD pH 7.189 (7.14-7.44)
[2021-02-04] MEDS ORDERED: ACETAMINOPHEN 325 MG TABLET (FP) ONE (08:13)
[2021-02-04] MEDS: ACETAMINOPHEN 325 MG TABLET (FP) PO PRN ×3 (08:15→20:50)
[2021-02-04] MEDS: FERROUS SO4 325 MG TABLET (FP) PO SCH ×2 (08:16→17:43)
[2021-02-04] MEDS ORDERED: FERROUS SO4 325 MG TABLET (FP) ONE (08:17)
[2021-02-04] MEDS ORDERED: PRENATAL VITAMINS W/ FOLIC ACID TABLET (FP) PO ONE (08:17)
[2021-02-04] MEDS: PRENATAL VITAMINS W/ FOLIC ACID TABLET (FP) PO SCH (09:30)
[2021-02-05] MEDS ORDERED: SENNOSIDES/DOCUSATE COMBO (SENNA PLUS) TABLET (UD) PO PRN (00:49)
[2021-02-05 08:10] LABS: BASO % 0.3 % (0-2.0); EOS % 1.2 % (0-4.5); HEMATOCRIT 29.2 % (32.4-45.2); HEMOGLOBIN 9.8 GM/dL (10.7-15.3); LYMPH % 19.6 % (8-40); MCH 28.1 pg (25.7-33.7); MCHC 33.4 g/dl (32.0-36.0); MEAN CELL VOLUME 84.2 fl (80-96); MEAN PLT VOLUME 7.3 fl (7.5-11.1); MONO % 5.9 % (3.8-10.2); PLATELET COUNT 209 10^3/uL (134-434); RBC 3.47 M/mm3 (3.60-5.2); RDW 15.8 % (11.6-15.6); WHITE BLOOD COUNT 6.1 K/mm3 (4.0-10.0)
[2021-02-05] MEDS: FERROUS SO4 325 MG TABLET (FP) PO SCH ×2 (08:23→17:47)
[2021-02-05] MEDS: PRENATAL VITAMINS W/ FOLIC ACID TABLET (FP) PO SCH (09:50)
[2021-02-05] MEDS: ACETAMINOPHEN 325 MG TABLET (FP) PO PRN (09:51)
[2021-02-05] MEDS ORDERED: DIPHTH,PERTUSS(ACELL),TET 0.5 ML DISP.SYRIN IM ONE (10:00)
[2021-02-06] MEDS: ACETAMINOPHEN 325 MG TABLET (FP) PO PRN (05:59)
[2021-02-06] MEDS: PRENATAL VITAMINS W/ FOLIC ACID TABLET (FP) PO SCH (09:45)
[2021-02-06] MEDS: FERROUS SO4 325 MG TABLET (FP) PO SCH (09:46)
[2021-02-06 10:35] VITALS: BP 99/64; PULSE 96; TEMP 97.5
== END 2021-02-06 13:15 | disposition home or self-care (01) | DRG 560 ==
LOC: JLDR 08:18 → J3W 02-04 14:20
PROVIDERS: ADMIT Obstetrics & Gynecology; ATTEND Obstetrics & Gynecology
PROC: 3E0P7VZ Introduction of Hormone into Female Reproductive, Via Natural or Artificial Opening (ICD-10-PCS; 2021-02-03)
PROC: 10E0XZZ Delivery of Products of Conception, External Approach (ICD-10-PCS; principal; 2021-02-04)
PROC: 0W8NXZZ Division of Female Perineum, External Approach (ICD-10-PCS; 2021-02-04)
DX: O48.0 Post-term pregnancy (principal); Z3A.41 41 weeks gestation of pregnancy; O99.213 Obesity complicating pregnancy, third trimester; Z22.330 Carrier of Group B streptococcus; Z37.0 Single live birth
CPT/HCPCS: 36415; 36600; 59409; 80048; 82803; 85025; 85610; 85730; 86780; 86850; 86900; 86901; C9803; U0003; U0005

== ENCOUNTER 2021-03-17 16:43 | Inpatient (IN) | payer OTHER ==
[2021-03-17 17:04] VITALS: BMI 35.6
[2021-03-17] MEDS ORDERED: MAG HYDROX/AL HYDROX/SIMETH -MYLANTA- ORAL SUSPENSION PO ONE (18:00)
[2021-03-17] MEDS ORDERED: FAMOTIDINE 20 MG/50 ML IVPB 20 MG/50 ML MG IVPB ONE ×2 (18:00→18:16)
[2021-03-17] MEDS ORDERED: ONDANSETRON 4 MG/2 ML VIAL IVPUSH ONE (18:20)
[2021-03-17] MEDS ORDERED: ONDANSETRON 4 MG/2 ML VIAL ONE (18:22)
[2021-03-17 18:23] LABS: BASO % 0.5 % (0-2.0); EOS % 0.4 % (0-4.5); HEMATOCRIT 38.9 % (32.4-45.2); LYMPH % 10.2 % (8-40); MCH 27.7 pg (25.7-33.7); MCHC 33.5 g/dl (32.0-36.0); MEAN CELL VOLUME 82.5 fl (80-96); MEAN PLT VOLUME 7.3 fl (7.5-11.1); MONO % 5.2 % (3.8-10.2); NEUT % 83.7 % (42.8-82.8); PLATELET COUNT 352 10^3/uL (134-434); RBC 4.71 M/mm3 (3.60-5.2); RDW 14.8 % (11.6-15.6); WHITE BLOOD COUNT 9.8 K/mm3 (4.0-10.0)
[2021-03-17 18:40] LABS: EPI CELLS >36 /uL (0-25.1); HYALINE CASTS 10 /uL (0-3.1); PH,URINE 7.5 (5.0-8.0); URINE APPEARANCE CLOUDY; URINE BACTERIA 2212 /uL (0-1359); URINE BILIRUBIN 1+ (NEGATIVE); URINE COLOR RED; URINE GLUCOSE (UA) NEGATIVE (NEGATIVE); URINE KETONE NEGATIVE (NEGATIVE); URINE LEUK ESTERASE 2+ (NEGATIVE); URINE NITRITE NEGATIVE (NEGATIVE); URINE PROTEIN 2+ (NEGATIVE); URINE RBC 2299 /uL (0-23.9); URINE WBC 92 /uL (0-25.8)
[2021-03-17 18:41] LABS: HCG,QUALITATIVE URINE Negative
[2021-03-17 18:44] LABS: BLOOD UREA NITROGEN 7.7 mg/dL (7-18); CALCIUM 9.4 mg/dL (8.5-10.1)
[2021-03-17 18:47] LABS: CREATININE 0.7 mg/dL (0.55-1.3)
[2021-03-17 18:49] LABS: BILIRUBIN,TOTAL 1.2 mg/dL (0.2-1)
[2021-03-17] MEDS ORDERED: ACETAMINOPHEN 1000 MG/100 ML BAG IVPB ONE (18:52)
[2021-03-17] MEDS ORDERED: ACETAMINOPHEN INJECTION 100 ML IVPB ONE (19:05)
[2021-03-17] MEDS ORDERED: ONDANSETRON 4 MG/2 ML VIAL IVPUSH PRN (22:31)
[2021-03-17] MEDS ORDERED: SODIUM CHLORIDE 1,000 ML IV SCH (22:45)
[2021-03-18] MEDS: KETOROLAC TROMETHAMINE 15 MG/ML VIAL IM PRN ×2 (00:20→23:30)
[2021-03-18 02:08] LABS: CALCIUM 9.4 mg/dL (8.5-10.1)
[2021-03-18 02:09] LABS: ALBUMIN 3.7 g/dl (3.4-5.0); BLOOD UREA NITROGEN 7.3 mg/dL (7-18)
[2021-03-18 02:12] LABS: CREATININE 0.7 mg/dL (0.55-1.3)
[2021-03-18 02:14] LABS: BILIRUBIN,TOTAL 2.2 mg/dL (0.2-1); TOT PROT 7.3 g/dl (6.4-8.2)
[2021-03-18 09:19] LABS: BASO % 0.4 % (0-2.0); EOS % 2.7 % (0-4.5); HEMATOCRIT 36.1 % (32.4-45.2); HEMOGLOBIN 11.6 GM/dL (10.7-15.3); LYMPH % 27.1 % (8-40); MCH 26.9 pg (25.7-33.7); MCHC 32.3 g/dl (32.0-36.0); MEAN CELL VOLUME 83.3 fl (80-96); MEAN PLT VOLUME 7.9 fl (7.5-11.1); MONO % 9.3 % (3.8-10.2); NEUT % 60.5 % (42.8-82.8); PLATELET COUNT 313 10^3/uL (134-434); RBC 4.33 M/mm3 (3.60-5.2); RDW 14.8 % (11.6-15.6)
[2021-03-18 09:46] LABS: ALBUMIN 3.3 g/dl (3.4-5.0)
[2021-03-18 09:47] LABS: BLOOD UREA NITROGEN 7.3 mg/dL (7-18); CALCIUM 8.5 mg/dL (8.5-10.1)
[2021-03-18 09:49] LABS: CREATININE 0.7 mg/dL (0.55-1.3)
[2021-03-18 09:51] LABS: BILIRUBIN,TOTAL 2.7 mg/dL (0.2-1); TOT PROT 6.5 g/dl (6.4-8.2)
[2021-03-18] MEDS: POLYETHYLENE GLYCOL (HEALTHYLAX) 3350 17 GM PACKET PO SCH (09:51)
[2021-03-18] MEDS: DEXTROSE 5%-LACTATED RINGERS 1,000 ML IV SCH (12:47)
[2021-03-18 13:08] LABS: INR 1.03 (0.83-1.09); PROTHROMBIN TIME (PATIENT) 11.8 SEC (9.7-13.0)
[2021-03-18] MEDS ORDERED: LORazepam 1 MG TABLET PO ONE (13:30)
[2021-03-19 08:18] LABS: BASO % 0.4 % (0-2.0); EOS % 3.8 % (0-4.5); HEMATOCRIT 33.6 % (32.4-45.2); HEMOGLOBIN 10.8 GM/dL (10.7-15.3); MCHC 32.3 g/dl (32.0-36.0); MEAN CELL VOLUME 83.5 fl (80-96); MEAN PLT VOLUME 7.7 fl (7.5-11.1); MONO % 7.1 % (3.8-10.2); NEUT % 62.7 % (42.8-82.8); PLATELET COUNT 299 10^3/uL (134-434); RBC 4.02 M/mm3 (3.60-5.2); RDW 14.7 % (11.6-15.6); WHITE BLOOD COUNT 4.3 K/mm3 (4.0-10.0)
[2021-03-19 08:39] LABS: BLOOD UREA NITROGEN 4.8 mg/dL (7-18); CALCIUM 8.3 mg/dL (8.5-10.1)
[2021-03-19 08:41] LABS: BILIRUBIN,DIRECT 0.3 mg/dL (0.0-0.2); CREATININE 0.6 mg/dL (0.55-1.3)
[2021-03-19 08:43] LABS: BILIRUBIN,TOTAL 1.1 mg/dL (0.2-1); TOT PROT 6.1 g/dl (6.4-8.2)
[2021-03-19] MEDS: POLYETHYLENE GLYCOL (HEALTHYLAX) 3350 17 GM PACKET PO SCH (09:04)
[2021-03-19] MEDS: DEXTROSE 5%-LACTATED RINGERS 1,000 ML IV SCH ×2 (11:27→18:30)
[2021-03-20 08:44] LABS: BASO % 0.4 % (0-2.0); EOS % 3.9 % (0-4.5); LYMPH % 29.5 % (8-40); MCH 27.1 pg (25.7-33.7); MCHC 32.2 g/dl (32.0-36.0); MEAN CELL VOLUME 84.2 fl (80-96); MEAN PLT VOLUME 7.6 fl (7.5-11.1); NEUT % 58.2 % (42.8-82.8); PLATELET COUNT 304 10^3/uL (134-434); RBC 4.04 M/mm3 (3.60-5.2); RDW 14.8 % (11.6-15.6); WHITE BLOOD COUNT 4.5 K/mm3 (4.0-10.0)
[2021-03-20 09:16] LABS: BILIRUBIN,DIRECT 0.2 mg/dL (0.0-0.2)
[2021-03-20 09:18] LABS: BILIRUBIN,TOTAL 0.5 mg/dL (0.2-1); TOT PROT 6.2 g/dl (6.4-8.2)
[2021-03-20] MEDS: POLYETHYLENE GLYCOL (HEALTHYLAX) 3350 17 GM PACKET PO SCH (10:35)
[2021-03-20] MEDS ORDERED: PROPOFOL 20 ML ONE (10:43)
[2021-03-20] MEDS ORDERED: MIDAZOLAM HCL 2 MG/2 ML SINGLE DOSE VIAL ONE (10:43)
[2021-03-20] MEDS ORDERED: ROCURONIUM BROMIDE 50 MG/5 ML SYRINGE ONE (10:44)
[2021-03-20] MEDS ORDERED: BUPIVACAINE HCL/PF 0.5% (5MG/ML) 10 ML VIAL ONE (11:05)
[2021-03-20] MEDS ORDERED: DEXAMETHASONE SOD PHOSPHATE 4 MG/1 ML VIAL ONE (11:57)
[2021-03-20] MEDS ORDERED: NEOSTIGMINE METHYLSULFATE 0.5 MG/ML - 10 ML MDV ONE (12:19)
[2021-03-20] MEDS ORDERED: GLYCOPYRROLATE 0.2 MG/1 ML VIAL ONE (12:22)
[2021-03-20] MEDS ORDERED: BUPIVACAINE HCL/PF 0.5% (5MG/ML) 10 ML VIAL IJ ONE (12:33)
[2021-03-20] MEDS ORDERED: SUCCINYLCHOLINE CHLORIDE 200 MG/10 ML SYRINGE ONE (12:38)
[2021-03-20] MEDS ORDERED: oxyCODONE HCL 5 MG TABLET PO PRN (13:14)
[2021-03-20] MEDS ORDERED: LACTATED RINGERS SOLUTION 1,000 ML IV SCH (13:15)
[2021-03-20] MEDS ORDERED: KETOROLAC TROMETHAMINE 15 MG/ML VIAL IM PRN (13:25)
[2021-03-20] MEDS: DEXTROSE 5%-LACTATED RINGERS 1,000 ML IV SCH ×3 (14:50→21:11)
[2021-03-20] MEDS: oxyCODONE HCL 5 MG TABLET PO PRN ×2 (16:32→21:10)
[2021-03-21] MEDS: oxyCODONE HCL 5 MG TABLET PO PRN ×2 (05:40→11:04)
[2021-03-21] MEDS ORDERED: POLYETHYLENE GLYCOL (HEALTHYLAX) 3350 17 GM PACKET PO SCH (10:00)
[2021-03-21 10:04] LABS: BASO % 0.1 % (0-2.0); EOS % 0.1 % (0-4.5); HEMATOCRIT 37.1 % (32.4-45.2); HEMOGLOBIN 12.1 GM/dL (10.7-15.3); LYMPH % 15.5 % (8-40); MCH 27.2 pg (25.7-33.7); MCHC 32.6 g/dl (32.0-36.0); MEAN CELL VOLUME 83.4 fl (80-96); MEAN PLT VOLUME 7.7 fl (7.5-11.1); MONO % 5.1 % (3.8-10.2); NEUT % 79.2 % (42.8-82.8); PLATELET COUNT 379 10^3/uL (134-434); RBC 4.45 M/mm3 (3.60-5.2); RDW 14.7 % (11.6-15.6); WHITE BLOOD COUNT 7.8 K/mm3 (4.0-10.0)
[2021-03-21 10:23] LABS: CALCIUM 9.2 mg/dL (8.5-10.1)
[2021-03-21 10:24] LABS: ALBUMIN 3.5 g/dl (3.4-5.0); BLOOD UREA NITROGEN 6.8 mg/dL (7-18)
[2021-03-21 10:27] LABS: BILIRUBIN,DIRECT 0.2 mg/dL (0.0-0.2); CREATININE 0.7 mg/dL (0.55-1.3)
[2021-03-21 10:29] LABS: BILIRUBIN,TOTAL 0.4 mg/dL (0.2-1); TOT PROT 7.1 g/dl (6.4-8.2)
[2021-03-21 13:44] VITALS: BP 126/78; PULSE 74; TEMP 97.9
== END 2021-03-21 13:58 | disposition home or self-care (01) | DRG 263 ==
LOC: JER 16:43 → OBSVTOIN 20:20 → INTOOBSV 20:20 → JERBED 20:20 → J7W 03-18 02:28
PROVIDERS: ADMIT Hospitalist
PROC: 0FT44ZZ Resection of Gallbladder, Percutaneous Endoscopic Approach (ICD-10-PCS; principal; 2021-03-20 12:30)
DX: K80.10 Calculus of gallbladder with chronic cholecystitis without obstruction (principal); J45.909 Unspecified asthma, uncomplicated; D50.9 Iron deficiency anemia, unspecified; E28.2 Polycystic ovarian syndrome; N60.19 Diffuse cystic mastopathy of unspecified breast; F41.9 Anxiety disorder, unspecified; R74.01 Elevation of levels of liver transaminase levels; E66.9 Obesity, unspecified; Z68.36 Body mass index [BMI] 36.0-36.9, adult; R10.11 Right upper quadrant pain
CPT/HCPCS: 36415; 74181-TC; 76705-TC; 80048; 80053; 80076; 81003; 82150; 83690; 84703; 85025; 85610; 86140; 87040; 87077; 87086; 88304-TC; 93005; 93010; 94760; 99285-25; C9803; J0131; U0003; U0005

== ENCOUNTER → 2023-01-02 | Day surgery (SDC) | payer OTHER | END | disposition home or self-care (01) | LOC: JRADUS-SUR 10:55 | PROVIDERS: ATTEND Midwife | PROC: 0H9T3ZX Drainage of Right Breast, Percutaneous Approach, Diagnostic (ICD-10-PCS; principal; 2023-01-02) | DX: N60.02 Solitary cyst of left breast (principal) | CPT/HCPCS: 19000; 76942-TC; 87899 ==

== ENCOUNTER 2024-05-04 07:30 | Inpatient (IN) | payer OTHER ==
[2024-05-04] MEDS: ELECTROLYTE-148 SOLN 500 ML IV ONE (08:15)
[2024-05-04 08:35] VITALS: BMI 42.6
[2024-05-04] MEDS: CITRIC ACID/SODIUM CITRATE 30 ML UNIT-DOSE CUP PO ONE (09:10)
[2024-05-04] MEDS: ELECTROLYTE-148 SOLN 1,000 ML IV SCH (10:15)
[2024-05-04 11:11] LABS: CORD HCO3 23.5 mmHg (20-29); CORD PCO2 57.3 mmHg (30-78)
[2024-05-04 11:14] LABS: CORD BASE EXCESS -3.7 mmol/L (0-2); CORD HCO3 21.2 mmHg (20-29); CORD PCO2 38.1 mmHg (30-78); CORD pH 7.364 (7.14-7.44)
[2024-05-04] MEDS ORDERED: WITCH HAZEL 50% (TUCKS) 40 PAD/JAR PAD TP PRN (11:14)
[2024-05-04] MEDS ORDERED: BISACODYL 10 MG SUPP.RECT RC PRN (11:14)
[2024-05-04] MEDS ORDERED: BENZOCAINE 20% 57 GM BOTTLE TP PRN (11:14)
[2024-05-04] MEDS ORDERED: BENZOCAINE 28 GM HEMORRHOIDAL OINTMENT TP PRN (11:14)
[2024-05-04] MEDS: OXYTOCIN 20 UNITS in 0.9% NS 20 UNIT/1,000 ML INFUS.BAG IV SCH (13:07)
[2024-05-04] MEDS ORDERED: AZITHROMYCIN IVPB 500 MG/250 ML BAG IVPB ONE (15:00)
[2024-05-04] MEDS: AZITHROMYCIN IVPB 500 MG/250 ML BAG IVPB ONE (18:03)
[2024-05-04] MEDS: ACETAMINOPHEN 1000 MG/100 ML BAG IVPB PRN (23:22)
[2024-05-05] MEDS: oxyCODONE HCL 5 MG TABLET PO PRN (04:05)
[2024-05-05] MEDS: ACETAMINOPHEN 325 MG TABLET (FP) PO PRN (05:33)
[2024-05-05] MEDS ORDERED: IBUPROFEN 600 MG TABLET (FP) PO PRN (07:42)
[2024-05-05 08:37] LABS: BASO % 0.1 % (0-2.0); EOS % 0.1 % (0-4.5); HEMATOCRIT 29.2 % (32.4-45.2); HEMOGLOBIN 9.7 GM/dL (10.7-15.3); LYMPH % 16.1 % (8-40); MCH 27.5 pg (25.7-33.7); MCHC 33.2 g/dl (32.0-36.0); MEAN CELL VOLUME 82.9 fl (80-96); MEAN PLT VOLUME 7.9 fl (7.5-11.1); MONO % 6.5 % (3.8-10.2); NEUT % 77.2 % (42.8-82.8); PLATELET COUNT 250 10^3/uL (134-434); RBC 3.53 M/mm3 (3.60-5.2); RDW 14.2 % (11.6-15.6); WHITE BLOOD COUNT 7.8 K/mm3 (4.0-10.0)
[2024-05-05] MEDS: SIMETHICONE 80 MG TAB.CHEW (FP) PO PRN (09:28)
[2024-05-05] MEDS: SENNOSIDES/DOCUSATE COMBO (SENNA PLUS) TABLET (UD) PO PRN (19:11)
[2024-05-05 21:45] VITALS: RESP 18
[2024-05-06] MEDS: FLUTICASONE PROP 0.05% 16 GM NASAL SPRAY NS SCH
[2024-05-06] MEDS: BENZOCAINE/MENTHOL (CHLORASEPTIC ) LOZENGE MM PRN (00:01)
[2024-05-07 10:55] VITALS: BP 124/71; PULSE 89; TEMP 98.1
== END 2024-05-07 14:10 | disposition home or self-care (01) | DRG 540 ==
LOC: JLDR 07:30 → J3W 14:25
PROVIDERS: ADMIT Student in an Organized Health Care Education/Training Program; ATTEND Student in an Organized Health Care Education/Training Program
PROC: 10D00Z1 Extraction of Products of Conception, Low, Open Approach (ICD-10-PCS; principal; 2024-05-04)
DX: O62.1 Secondary uterine inertia (principal); O99.214 Obesity complicating childbirth; E66.9 Obesity, unspecified; Z3A.39 39 weeks gestation of pregnancy; Z37.0 Single live birth
CPT/HCPCS: 36415; 36600; 80053; 81003; 82803; 85025; 85610; 86780; 86850; 86900; 86901; 88307-TC; J0131